=== PATIENT | male | born 1935 | race Caucasian/White ===

== ENCOUNTER 2020-10-19 14:31 | Emergency (ER) | payer OTHER, SELFPAY ==
[2020-10-19 14:32] VITALS: BP 143/74; PULSE 42; RESP 17; TEMP 36.4; O2SAT 96; BMI 22.4
--- NOTE | 2020-10-19 14:50 | EKG12_ITS ---
Test Reason : IRREGULAR HR Blood Pressure : / mmHG Vent. Rate : 059 BPM Atrial Rate : 059 BPM P-R Int : 370 ms QRS Dur : 142 ms QT Int : 464 ms P-R-T Axes : 060 -10 081 degrees QTc Int : 459 ms Sinus bradycardia 2:1 AV block with frequent Premature ventricular complexes Left bundle branch block Abnormal ECG Confirmed by GINGER VIEIRA, WILBER ([id number]), staff editor DOLLY RAMIRES ([id number]) on 10/20/2020 9:03:13 AM Referred By: Confirmed By:WILBER MILES MD
--- NOTE | 2020-10-19 14:50 | CT_ITS ---
STUDY: CT BRAIN WITHOUT CONTRAST REASON FOR EXAM: Male, 85 years old. slurred speach RADIATION DOSAGE (If Supplied By Facility): CTDIvol = ( 44.99 ) mGy, DLP = ( 779.24 ) mGycm TECHNIQUE: Transaxial CT imaging of the brain was performed without administration of intravenous contrast material. Individualized dose optimization techniques were used for this CT. COMPARISON: No relevant priors. FINDINGS: Normal soft tissue structures. Normal calvarium. There is moderate cerebral atrophy with widening of the extra-axial spaces and ventricular dilatation. Normal white matter tracts of the cerebral hemispheres. Normal basal ganglia and thalami. Normal brainstem. Normal cerebellum. There is no intracranial hemorrhage. There are no findings of an acute ischemic infarction. Normal visualized paranasal sinuses. CT/Brain/Head without Contrast IMPRESSION: Chronic involutional changes of the brain. Electronically Signed: Osvaldo Fried MD at 16:15 EDT , Service support ,
--- NOTE | 2020-10-19 14:51 | EDS_ITS ---
HPI History of Present Illness Chief Complaint: Weakness Detail of Chief Complaint: Slurred speech, low heart rate, generalized weakness Informant: patient Narrative Narrative: Patient presents to the emergency department with family members from home. Patient apparently had an episode this morning where he had slurred speech that may have lasted up to an hour. Most of the history comes from the patient's son. Patient does not recall the episode. No focal weakness was known. Son states that by the time he came home his dad was up and walking around and was doing better. Patient went to urgent care and was noted to be bradycardic and referred to the emergency department. Patient denies any chest pain or shortness of breath. He really does not see a primary care physician. Patient denies recent illness. Son states that about a month ago he had a syncopal episode in [place] but was caught by others and he did not actually fall down. Prior similar symptoms: No [facility] Medical History (Updated 10/19/20 @ 19:[address] Luis Watson MD) Cardiac murmur Diabetes Hernia High-grade atrioventricular block Hypotension Syncope Home Medications NK 10/19/20 [History Last Taken Unknown] Allergy/AdvReac Type Severity Reaction Status Date / Time No Known Allergies Allergy Verified 10/19/20 15:04 Family History (Updated 10/19/20 @ 17:37 by Isidro RODRIGUES) Father , No known paternal medical history, to include HTN, DM2, CAD or ACS No problems noted. Mother , No known paternal medical history, to include HTN, DM2, CAD or ACS No problems noted. Surgical History (Updated 10/19/20 @ 17:31 by Isidro RODRIGUES) History of appendectomy History of hernia surgery Social History (Updated 10/19/20 @ 17:40 by Isidro RODRIGUES) household members: family Smoking Status: Never smoker alcohol intake: never substance use type: does not use ROS ROS ED ROS Narrative Generalized weakness Constitutional Constitutional ED: Reports systems reviewed and no addt'l complaints, except as documented; Denies body ache(s), change in weight or chills Eyes Eyes: Denies acute decrease in peripheral vision, change in vision, double vision or loss of vision ENT ENT ED: Reports none; Denies ear pain, lip swelling, loss taste/smell, neck pain, otalgia or sore throat Cardiovascular Cardiovascular: Reports none and other Details: Bradycardia ; Denies abdominal pain, chest pain with activity, leg edema, lightheadedness, palpitations, rapid heart rate or syncope Respiratory/Chest Respiratory/Chest: Reports none; Denies change in mental status, dry cough, dyspnea, hemoptysis, shortness of breath at rest or shortness of breath with exertion Gastrointestinal Gastrointestinal: Reports none; Denies abdominal pain, change in stool character, diarrhea, hematemesis, hematochezia, melena, rectal bleeding or vomiting Genitourinary Genitourinary ED: Reports none; Denies abdominal discomfort, anuria, dysuria, genital pain or polyuria Musculoskeletal Musculoskeletal: Reports none; Denies arthralgias, back pain, difficulty walking, extremity pain, muscle weakness or myalgias Integumentary Reports none; Denies abscess or rash Neurologic Neurologic: Reports none and other Details: Slurred speech ; Denies abnormal gait, confusion, focal weakness, frequent falls, headache(s), loss of vision, numbness, paresthesias, radicular pain, vertigo or weakness Psychiatric Psychiatric: Reports systems reviewed and no addt'l complaints, except as documented and none; Denies behavioral changes, confusion, difficulty concentrating, hallucinations, suicidal ideation, tactile hallucinations or visual hallucinations Endocrine Endocrinology: Denies none, cold intolerance, excessive sweating, fatigue or heat intolerance Hematologic/Lymphatic Hematologic/Lymphatic: Reports none; Denies anemia, easy bleeding or easy bruising Allergic/Immunologic Allergic/Immunologic ED: Denies as per HPI, none, lip swelling, mouth swelling, throat swelling, tongue swelling or hives EXAM Physical Exam Const Vital Signs: 10/19/20 14:32 10/19/20 15:01 10/19/20 15:07 Temperature 97.6 F L Temperature Source Temporal Pulse Rate 42 L Pulse Rate [Lying] 44 L Pulse Rate [Sitting] 42 L Pulse Rate [Standing] 45 L Respiratory Rate 17 Respiratory Effort Normal Non-Labored Respiratory Pattern Normal Blood Pressure 143/74 H Blood Pressure [Lying] 149/63 H Blood Pressure [Sitting] 142/53 H Blood Pressure [Standing] 150/76 H Blood Pressure Mean 97 Blood Pressure Mean [Lying] 91 Blood Pressure Mean [Sitting] 82 Blood Pressure Mean [Standing] 100 Pulse Ox 96 Oxygen Delivery Method Room Air 10/19/20 17:13 10/19/20 19:45 Temperature 98 F Temperature Source Temporal Pulse Rate 75 46 L Pulse Rate [Lying] Pulse Rate [Sitting] Pulse Rate [Standing] Respiratory Rate 16 16 Respiratory Effort Respiratory Pattern Blood Pressure 143/60 H 150/67 H Blood Pressure [Lying] Blood Pressure [Sitting] Blood Pressure [Standing] Blood Pressure Mean 87 94 Blood Pressure Mean [Lying] Blood Pressure Mean [Sitting] Blood Pressure Mean [Standing] Pulse Ox 98 96 Oxygen Delivery Method Room Air Room Air Positive well nourished and well developed General Appearance ED: well developed and NAD HEENT Reports TM's clear and moist mucous membranes normocephalic and atraumatic; Negative for trauma or tenderness Tympanic Membrane ED: Yes TM's clear Eyes PERRL and EOMs intact bilaterally General Eye ED: Negative for pale conjunctiva or scleral icterus Neck no lymphadenopathy, supple and no JVD General: Negative for tenderness Chest Wall inspection of chest normal and palpation of chest normal Chest: Negative for tenderness Resp normal respiratory effort and clear to auscultation bilaterally Effort and Inspection: Negative for respiratory distress or pain with movement Auscultation: Negative for rhonchi, wheezes or diminished lung sounds Cardio regular rhythm, S1 normal heart sound, S2 normal heart sound and no murmurs Rate: bradycardia and other Other Details: Frequent ectopy Peripheral Pulses: pulses 2+ throughout GI normal to inspection, nondistended, normoactive bowel sounds, soft to palpation, non-tender, non-distended and no masses Back/Spine no CVA tenderness and no thoracic nor lumbar tenderness Extremity normal to inspection General Extremety ED: Negative for edema General Extremity: Negative for edema Neuro oriented x3, CN's II-XII intact bilaterally, no sensory deficits noted and gait normal Sensorium / Orientation: awake, alert, oriented to person, oriented to place and oriented to time Motor Exam: strength 5/5 throughout and strength abnormal Psych mental status grossly normal Skin no rashes or lesions noted and no wounds MDM MDM MDM Narrative Medical decision making narrative: Patient case discussed with hospitalist who will evaluate patient for admission. Concern patient may have had a TIA. Also patient noted to be bradycardic in the emergency department. After discussing case with hospitalist and having the EKG interpreted by cardiology. Cardiology felt patient had a second-degree 2-1 AV block that would require pacemaker placement and we were asked to transfer patient as this is not available here at [facility] at this time. Case discussed with [facility] cardiology Dr. Quiñones who accepted transfer of patient Lab Data Attestation: I reviewed the patient's lab results. Labs: Laboratory Results - last 24 hr 10/19/20 10/19/20 10/19/20 14:57 14:57 17:20 WBC Cancelled 6.2 Corrected WBC Cancelled RBC Cancelled 3.93 L Hgb Cancelled 12.1 L Hct Cancelled 35.9 L MCV Cancelled 91.3 MCH Cancelled 30.8 MCHC Cancelled 33.7 RDW Std Deviation Cancelled 47.0 H RDW Coeff of Elmo Cancelled 13.7 Plt Count Cancelled 333 MPV Cancelled 9.5 Immature Gran % (Auto) Cancelled 0.300 Neut % (Auto) Cancelled 63.1 Lymph % (Auto) Cancelled 22.9 [place] % (Auto) Cancelled 10.7 H Eos % (Auto) Cancelled 2.3 Baso % (Auto) Cancelled 0.7 Absolute Neuts (auto) Cancelled 3.9 Absolute Lymphs (auto) Cancelled 1.41 Total Counted Cancelled Neutrophils % (Manual) Cancelled Band Neutrophils % Cancelled Lymphocytes % (Manual) Cancelled Monocytes % (Manual) Cancelled Eosinophils % (Manual) Cancelled Basophils % (Manual) Cancelled Metamyelocytes % Cancelled Myelocytes % Cancelled Promyelocytes % Cancelled Blast Cells % Cancelled Plasma Cell % (Manual) Cancelled Other Cells % Cancelled Nucleated RBC % Cancelled 0 Nucleated RBCs/100 WBC Cancelled Differential Comment Cancelled Diff Path Review Cancelled Hypersegmented Neuts Cancelled Atypical Lymphocytes Cancelled Reactive Lymphocytes Cancelled Smudge Cells Cancelled Toxic Granulation Cancelled Toxic Vacuolation Cancelled Dohle Bodies Cancelled Matthew Rods Cancelled Platelet Estimate Cancelled Plt Morphology Comment Cancelled RBC Morphology Cancelled Polychromasia Cancelled Hypochromasia Cancelled Poikilocytosis Cancelled Basophilic Stippling Cancelled Anisocytosis Cancelled Microcytosis Cancelled Macrocytosis Cancelled Spherocytes Cancelled Sickle Cells Cancelled Target Cells Cancelled Tear Drop Cells Cancelled Ovalocytes Cancelled Stomatocytes Cancelled [place] Bodies Cancelled Lisa Cells Cancelled Bite Cells Cancelled Crenated Cell Cancelled Acanthocytes (Spur) Cancelled Rouleaux Cancelled Schistocytes Cancelled Sodium 130 L Potassium 4.5 Chloride 99 Carbon Dioxide 25.0 Anion Gap 6 BUN 16 Creatinine 1.13 Estim Creat Clear Calc 49.74 Est GFR (MDRD) Af Amer 80 Est GFR (MDRD) Non-Af 66 BUN/Creatinine Ratio 14.2 Glucose 117 H Calcium 9.1 Magnesium Troponin I High Sens 14 10/19/20 17:20 WBC Corrected WBC RBC Hgb Hct MCV MCH MCHC RDW Std Deviation RDW Coeff of Elmo Plt Count MPV Immature Gran % (Auto) Neut % (Auto) Lymph % (Auto) [place] % (Auto) Eos % (Auto) Baso % (Auto) Absolute Neuts (auto) Absolute Lymphs (auto) Total Counted Neutrophils % (Manual) Band Neutrophils % Lymphocytes % (Manual) Monocytes % (Manual) Eosinophils % (Manual) Basophils % (Manual) Metamyelocytes % Myelocytes % Promyelocytes % Blast Cells % Plasma Cell % (Manual) Other Cells % Nucleated RBC % Nucleated RBCs/100 WBC Differential Comment Diff Path Review Hypersegmented Neuts Atypical Lymphocytes Reactive Lymphocytes Smudge Cells Toxic Granulation Toxic Vacuolation Dohle Bodies Matthew Rods Platelet Estimate Plt Morphology Comment RBC Morphology Polychromasia Hypochromasia Poikilocytosis Basophilic Stippling Anisocytosis Microcytosis Macrocytosis Spherocytes Sickle Cells Target Cells Tear Drop Cells Ovalocytes Stomatocytes [place] Bodies Lisa Cells Bite Cells Crenated Cell Acanthocytes (Spur) Rouleaux Schistocytes Sodium Potassium Chloride Carbon Dioxide Anion Gap BUN Creatinine Estim Creat Clear Calc Est GFR (MDRD) Af Amer Est GFR (MDRD) Non-Af BUN/Creatinine Ratio Glucose Calcium Magnesium 2.3 Troponin I High Sens Radiography Chest X-Ray - ED: 1 View Diagnostic Testing: Radiology Impression Brain CT 10/19/20 14:50 IMPRESSION: Chronic involutional changes of the brain. Electronically Signed: Osvaldo Fried MD at 16:15 EDT , Service support , Chest X-Ray 10/19/20 16:13 IMPRESSION: COPD Electronically Signed: Osvaldo Fried MD at 16:28 EDT , Service support , 1 view chest x-ray obtained interpreted by myself as hyperinflation. Radiology read it is COPD otherwise no acute disease process. EKG Initial EKG: Interpretation: AV Block Comments: Sinus rhythm with a first-degree AV block and frequent PVCs as well as a left bundle branch block. Patient also noted to have a second-degree AV block that is 2-1 Prior EKG tracings: not available for review Discharge Plan Triage Chief Complaint: Weakness ED Provider: Yousif Johnson Dx/Rx/DC Orders Clinical Impression: Brain TIA, Bradycardia Prescriptions: No Action NK RF: 0 Primary Care Provider: Cristina Peters Referrals: Cristina Peters [Primary Care Provider] - Disposition Disposition: Transfer to Another Type HCF Discharge Location: [facility] Discharge Date/Time: 10/19/20 21:20
[2020-10-19 15:07] VITALS: BP 142/53; BP 149/63; BP 150/76; PULSE 42; PULSE 44; PULSE 45
[2020-10-19 15:26] LABS: Anion Gap 6 (5-15); BUN 16 mg/dL (7-18); BUN/Creat Ratio 14.2 RATIO (10-20); Calcium,Total 9.1 mg/dL (8.5-10.1); Chloride 99 mmol/L (98-107); Creatinine, Serum 1.13 mg/dL (0.70-1.30); EST Glomerular Filtration Rate 66 mL/min (>60); Est Glom Filt Rate - Afr Amer 80 mL/min (>60); Estimated Creatinine Clearance 49.74 ml/min; Glucose 117 mg/dL (74-106); Potassium 4.5 mmol/L (3.5-5.1); Sodium Level 130 mmol/L (136-145); Troponin-I HS 14 pg/mL (3.0-78.0)
[2020-10-19] MEDS: 0.9% Normal Saline 1,000 ML 150 ML IV (15:36)
--- NOTE | 2020-10-19 16:13 | RAD_ITS ---
STUDY: X-RAY CHEST REASON FOR EXAM: Male, 85 years old. weakness TECHNIQUE: Single frontal view of the chest. COMPARISON: None. FINDINGS: Lungs are hyperaerated. The lungs are clear and expanded. There is no demonstrated pleural abnormality. Normal size heart. Normal mediastinum and nakia. Normal visualized pulmonary arteries. Normal visualized aortic arch and descending thoracic aorta. Normal visualized thoracic spine. Normal visualized ribs, clavicles, and shoulders. There is no demonstrated abnormality of the visualized soft tissue structures of the upper abdomen. RAD/Chest 1 View (Portable) IMPRESSION: COPD Electronically Signed: Osvaldo Fried MD at 16:28 EDT , Service support ,
[2020-10-19 17:13] VITALS: BP 143/60; PULSE 75; RESP 16; TEMP 36.6; O2SAT 98
--- NOTE | 2020-10-19 17:15 | HP.PCM.HOS_ITS ---
Documented by User: Isidro RODRIGUES 10/19/20 17:55 HPI - General General Date of Admission: 10/19/20 Date of Service: 10/19/20 Chief Complaint: Slurred speech HPI Narrative ROBIN SHARMA is an 85-year-old male who presents to the ED at [facility] on 10/19/2020 with a chief complaint of slurred speech, bradycardia and previously observed syncope. Patient reports that today he was riding on his bu ggy to his friend's house where he was observed having an episode of slurred speech that lasted about an hour. Patient's friends contacted family who had patient evaluated at an urgent care clinic who observed the patient to have continuous episodes of bradycardia in the mid 40s. Provider at urgent care clinic recommended that patient be evaluated at an emergency room for further work-up. Patient does not have memory of either of these events and much of the history was gathered from patient's son and son-in-law who were present in the ED. Of note, patient was observed having a possible syncopal episode in [facility] about a month ago, patient did not suffer any acute trauma as he was caught by others attending the [facility] service. Patient does not complain of any headache, vision changes, upper or lower extremity weakness. Patient's past medical history is noncontributory as he does not regularly follow with a primary care doctor, patient does endorse a history of high blood sugars, but denies a formal diagnosis of diabetes or treatment thereof. Vital signs in the ED were signific ant for bradycardia at a variable rate between 40 to 75 bpm, BP is 143/60. Other vitals are stable and patient is afebrile. Chest x-ray shows no acute cardiopulmonary process, although does show hyperinflated lungs consistent with emphysema. Brain CT was obtained and only showed chronic involutional change of the brain with no evidence of acute ischemia or infarct. Patient was given fluids in the ED. [facility] Medical History (Updated 10/19/20 @ 17:31 by Isidro RODRIGUES) Diabetes Hernia Hypotension Home Medications NK 10/19/20 [History Last Taken Unknown] Allergy/AdvReac Type Severity Reaction Status Date / Time No Known Allergies Allergy Verified 10/19/20 15:04 Family History (Updated 10/19/20 @ 17:37 by Isidro RODRIGUES) Father , No known paternal medical history, to include HTN, DM2, CAD or ACS No problems noted. Mother , No known paternal medical history, to include HTN, DM2, CAD or ACS No problems noted. Surgical History (Updated 10/19/20 @ 17:31 by Isidro RODRIGUES) History of appendectomy History of hernia surgery Social History (Updated 10/19/20 @ 17:40 by Isidro RODRIGUES) household members: family Smoking Status: Never smoker alcohol intake: never substance use type: does not use ROS Constitutional Constitutional: Denies anorexia, change in weight, chills, fatigue, fever(s), malaise, night sweats, weakness or other Eyes Eyes: Denies blurry vision, change in eye color, change in vision, discharge from eye(s), double vision, erythema, eye pain, loss of vision or other ENT HEENT: Denies abnormal hearing, dysphagia, ear pain, epistaxis, headache(s), hearing loss, nasal congestion, nasal discharge, post nasal drip, sinus pressure, sore throat or other Cardiovascular Cardiovascular: Denies chest pain, claudication, dyspnea on exertion, edema, lightheadedness, orthopnea, palpitations, paroxysmal nocturnal dyspnea, rapid heart rate, syncope or other Respiratory/Chest Respiratory/Chest: Denies cough, dyspnea, excessive phlegm production, hemoptysis, productive cough, shortness of breath at rest, shortness of breath with exertion, wheezing or other Gastrointestinal Gastrointestinal: Denies abdominal pain, coffee ground emesis, constipation, diarrhea, dyspepsia, hematemesis, hematochezia, loose stools, melena, nausea, vomiting or other Genitourinary Genitourinary: Denies burning urination, difficulty urinating, dysuria, hematuria, nocturia, urinary frequency, urinary hesitancy, urinary incontinence, urinary urgency or other Musculoskeletal Musculoskeletal: Denies arthralgias, back pain, joint pain, joint stiffness, joint swelling, myalgias, neck pain or other Neurologic Neurologic: Reports abnormal speech; Denies abnormal gait, confusion, disequilibrium, dizziness, focal weakness, headache(s), numbness, paresthesias, seizure-like activity, seizures, syncope, tingling, tremor(s) or other Psychiatric Psychiatric: Denies anxiety, depression, homicidal ideation, suicidal ideation or other Endocrine Endocrinology: Denies change in body appearance, cold intolerance, excessive sweating, heat intolerance, polydipsia, polyuria or other Hematologic/Lymphatic Hematologic/Lymphatic: Denies anemia, easy bleeding, easy bruising, lymphadenopathy or other Allergic/Immunologic Allergic/Immunologic: Denies rhinitis, hives, eczemia, asthma or other Vital Signs Vital Signs Vital Signs: 10/19/20 14:32 10/19/20 15:01 10/19/20 15:07 Temperature 97.6 F L Temperature Source Temporal Pulse Rate 42 L Pulse Rate [Lying] 44 L Pulse Rate [Sitting] 42 L Pulse Rate [Standing] 45 L Respiratory Rate 17 Respiratory Effort Normal Non-Labored Respiratory Pattern Normal Blood Pressure 143/74 H Blood Pressure [Lying] 149/63 H Blood Pressure [Sitting] 142/53 H Blood Pressure [Standing] 150/76 H Blood Pressure Mean 97 Blood Pressure Mean [Lying] 91 Blood Pressure Mean [Sitting] 82 Blood Pressure Mean [Standing] 100 Pulse Ox 96 Oxygen Delivery Method Room Air Weight Weight: 156 lb 8.451 oz Body Mass Index (BMI) 22.4 Physical Exam Const alert Constitutional Narrative: Alert and orient x2, was unaware of current location. HEENT normocephalic, head/scalp atraumatic and hearing grossly normal bilaterally Eyes PERRL, EOMs intact bilaterally and conjunctivae normal Neck no lymphadenopathy, supple and no JVD Resp normal respiratory effort, no retractions, no use of accessory muscles and clear to auscultation bilaterally Cardio no murmurs and no JVD Rate: bradycardia Rhythm: abnormal rhythm GI normal to inspection, nondistended, normoactive bowel sounds, soft to palpation and non-tender Extremity normal to inspection, full ROM and no clubbing, cyanosis or edema Skin no rashes or lesions noted, no wounds, skin turgor normal and no jaundice Neuro CN's II-XII intact bilaterally Neuro Narrative: Patient did not demonstrate or complain of any focal neurological deficits. Psych affect normal Results Lab / Micro Data Result Diagrams: 10/19/20 17:20 10/19/20 14:57 Labs: Laboratory Results - last 24 hr 10/19/20 14:57: WBC Cancelled, Corrected WBC Cancelled, RBC Cancelled, Hgb Cancelled, Hct Cancelled, MCV Cancelled, MCH Cancelled, MCHC Cancelled, RDW Std Deviation Cancelled, RDW Coeff of Elmo Cancelled, Plt Count Cancelled, MPV Cancelled, Immature Gran % (Auto) Cancelled, Neut % (Auto) Cancelled, Lymph % (Auto) Cancelled, [place] % (Auto) Cancelled, Eos % (Auto) Cancelled, Baso % (Auto) Cancelled, Absolute Neuts (auto) Cancelled, Absolute Lymphs (auto) Cancelled, Total Counted Cancelled, Neutrophils % (Manual) Cancelled, Band Neutrophils % Cancelled, Lymphocytes % (Manual) Cancelled, Monocytes % (Manual) Cancelled, Eosinophils % (Manual) Cancelled, Basophils % (Manual) Cancelled, Metamyelocytes % Cancelled, Myelocytes % Cancelled, Promyelocytes % Cancelled, Blast Cells % Cancelled, Plasma Cell % (Manual) Cancelled, Other Cells % Cancelled, Nucleated RBC % Cancelled, Nucleated RBCs/100 WBC Cancelled, Differential Comment Cancelled, Diff Path Review Cancelled, Hypersegmented Neuts Cancelled, Atypical Lymphocytes Cancelled, Reactive Lymphocytes Cancelled, Smudge Cells Cancelled, Toxic Granulation Cancelled, Toxic Vacuolation Cancelled, Dohle Bodies Cancel led, Matthew Rods Cancelled, Platelet Estimate Cancelled, Plt Morphology Comment Cancelled, RBC Morphology Cancelled, Polychromasia Cancelled, Hypochromasia Cancelled, Poikilocytosis Cancelled, Basophilic Stippling Cancelled, Anisocytosis Cancelled, Microcytosis Cancelled, Macrocytosis Cancelled, Spher ocytes Cancelled, Sickle Cells Cancelled, Target Cells Cancelled, Tear Drop Cells Cancelled, Ovalocytes Cancelled, Stomatocytes Cancelled, Lou-Ambrose Bodies Cancelled, [place] Cells Cancelled, Bite Cells Cancelled, Crenated Cell Cancelled, Acanthocytes (Spur) Cancelled, Rouleaux Cancelled, Schistocytes Cancelled 10/19/20 14:57: Sodium 130 L, Potassium 4.5, Chloride 99, Carbon Dioxide 25.0, Anion Gap 6, BUN 16, Creatinine 1.13, Estim Creat Clear Calc 49.74, Est GFR (MDRD) Af Amer 80, Est GFR (MDRD) Non-Af 66, BUN/Creatinine Ratio 14.2, Glucose 117 H, Calcium 9.1, Troponin I High Sens 14 Micro: Microbiology 10/19/20 15:04 Nasal Secretion SARS-CoV-2 Antigen (Rapid) - Final Radiology Impression Brain CT 10/19/20 14:50 IMPRESSION: Chronic involutional changes of the brain. Electronically Signed: Osvaldo Fried MD at 16:15 EDT , Service support , Chest X-Ray 10/19/20 16:13 IMPRESSION: COPD Electronically Signed: Osvaldo Fried MD at 16:28 EDT , Service support , Assessment & Plan Assessment/Plan (1) Brain TIA: (2) Bradycardia: PLAN: Patient is an 85-year-old male who presents to the ED at [facility] on 10/19/2020 with a chief complaint of slurred speech, bradycardia and past history of syncope. Attempting to have patient transferred to tertiary facility for placement of permanent pacemaker. 1) slurred speech, CVA versus TIA Patient presents with a 1 day history of slurred speech. Patient does not have any significant past medical history, although endorses a history of high blood sugars. Patient is not on any aspirin, Plavix or aspirin at home. Patient does not demonstrate or complain of any focal neurological deficits on exam. Brain CT does not demonstrate any evidence of acute ischemia or infarct, and only shows chronic involutional changes of the brain. Plan; attempting to transfer secondary to #2, in the event that patient cannot be transferred immediately placed on PCU for cardiac tele monitoring, brain MRI ordered, MRA of the head and neck ordered, Echo in a.m, lipid panel ordered, PT/OT eval ordered, speech t herapy eval ordered, hemoglobin A1c ordered, CBC and BMP in a.m., Cardiac calorie controlled diet ordered, permissive hypertension allowed for rate less than 220/110, hydralazine and labetalol as needed, initiate aspirin and statin. 2) symptomatic bradycardia Patient presents with a history of observed syncope about 1 month ago. Patient with variable bradycardia with rates ranging from 40 to 75 bpm. EKG obtained and demonstrated 2-1 AV block. Patient is not on any rate limiting medications at home. Cardiology consulted: Recommends immediate transfer for placement of permanent pacemaker. Plan: ED contacted for transfer to tertiary medical facility, if no immediate transfer as above, TSH and free T4 ordered, duplex ultrasound of the carotids ordered, cardiology consult ordered, obtain orthostatic vitals. 3) diabetes, unclear type Patient self reports to having high blood sugars, however does not have any formal diagnosis of diabetes type 1 or 2. Plan; Accu-Cheks with sliding scale insulin ordered, hemoglobin A1c ordered. DVT prophylaxis -not ordered at this time. CODE STATUS: DNRCC-A, no intubation. Advance care planning: According to family, patient does have a living will, not on file. Patient seen by Isidro Triplett PA-C, under the supervision of Dr. Crews. Documented by User: Dr. Marilia Crews MD 10/19/20 18:57 HPI - General General Date of Admission: 10/19/20 [facility] Medical History (Updated 10/19/20 @ 17:31 by Isidro RODRIGUES) Diabetes Hernia Hypotension Home Medications NK 10/19/20 [History Last Taken Unknown] Allergy/AdvReac Type Severity Reaction Status Date / Time No Known Allergies Allergy Verified 10/19/20 15:04 Family History (Updated 10/19/20 @ 17:37 by Isidro RODRIGUES) Father , No known paternal medical history, to include HTN, DM2, CAD or ACS No problems noted. Mother , No known paternal medical history, to include HTN, DM2, CAD or ACS No problems noted. Surgical History (Updated 10/19/20 @ 17:31 by Isidro RODRIGUES) History of appendectomy History of hernia surgery Social History (Updated 10/19/20 @ 17:40 by Isidro RODRIGUES) household members: family Smoking Status: Never smoker alcohol intake: never substance use type: does not use Results Lab / Micro Data Result Diagrams: 10/19/20 17:20 10/19/20 14:57 Charges/Coding Multi Select Codes Visit Charges Office Visit/Consults: 88725 ED Visit; High/Threatening Severity Hospitalists' Procedures Procedures: 80681 Advncd Care Plan 30 Min
[2020-10-19 17:33] LABS: Absolute Lymphocyte Count 1.41 X10^3/uL (0.83-4.51); Absolute Neutrophil Count 3.9 X10^3/uL (2.0-7.7); Basophil# 0.04 X10^3/uL; Basophil% 0.7 % (0-1); Eosinophil# 0.14 X10^3/uL; Eosinophils% 2.3 % (0-5); Hematocrit 35.9 % (40-54); Hemoglobin 12.1 g/dL (13.0-16.5); Lymphocyte # 1.41 X10^3/ul (0.83-4.51); Lymphocyte % 22.9 % (19-41); Mean Corp Hgb Conc 33.7 g/dL (32-36); Mean Corpuscular Hgb 30.8 pg (27.0-32.0); Mean Corpuscular Volume 91.3 fL (80-94); Mean Platelet Vol. 9.5 fl (6.2-12.0); Monocyte# 0.66 X10^3/uL; Monocyte% 10.7 % (0-10); NRBC Flagged by Analyzer 0 % (0-5); Neutrophil # 3.88 X10^3/uL (2.7-7.7); Neutrophil % 63.1 % (47-70); Platelet Count 333 K/mm3 (150-450); RBC Distribution Width CV 13.7 % (11.6-14.6); Red Blood Count 3.93 M/mm3 (4.6-6.2); White Blood Count 6.2 K/mm3 (4.4-11.0)
--- NOTE | 2020-10-19 19:20 | CON.PCM.CA_ITS ---
Assessment & Plan Assessment/Plan (1) High-grade atrioventricular block: PLAN: The patient has been found to have evidence of a high-grade AV block. This may be the etiology for his concerns of fatigue, shortness of breath and dyspnea on exertion, his syncopal event, and potentially his episode of slurred speech . At the present time he appears to be hemodynamically stable at rest. He has not required any urgent or emergent intervention from a medical standpoint or a temporary transcutaneous or transvenous pacemaker standpoint. However, noting the patient is on no rate limiting medications, etc., this does raise concern of underlying primary conduction system disease that he is symptomatic from. Thus, it is recommended the patient be transferred to a tertiary care center where he can receive EP consultation for consideration for permanent pacemaker placement. (2) Cardiac murmur: PLAN: The patient does have a cardiac murmur on examination. He is unaware of this. He will need to be considered for further noninvasive valuation with a transthoracic echocardiogram to evaluate his valvular anatomy and physiology as well as his left ventricular wall motion and systolic function. (3) Syncope: QUALIFIERS: Syncope type: unspecified Qualified Code(s): R55 - Syncope and collapse PLAN: The patient had a near syncopal/syncopal event according to his family members present. This may be related to the finding of his underlying cardiac dysrhythmia conduction system disease. His brain CT scan was thought to be negative for any acute [employer] event. Thus he will continue his cardiovascular evaluation care as noted. Addt'l Comments The patient's case was discussed reviewed with the patient, his family members present, Dr. Crews, and Dr. Guaman. The patient is reported as being accepted at [facility] in [place], [place] for further cardiovascular evaluation and care. This note was generated using a voice recognition system and there may be incorrect words, spelling or punctuation that were not noted when reviewing the office note prior to saving. HPI Consult Data Date of Consult: 10/19/20 HPI Narrative HPI Narrative: ROBIN SHARMA, is a 85 year old white male who presents for cardiovascular consultation based upon concerns of an abnormal ECG demonstrating the appearance of sinus rhythm with 2-1 AV block with a left bundle branch block with occasional PVCs and associated symptoms of fatigue, shortness of breath/dyspnea with exertion, and near syncope/syncope. According to the patient and his family members present he has appears to have been more tired and fatigued recently, developing shortness of breath/dyspnea with exertion, and recently had an episode, which the patient does not recall, where he reportedly had a near syncopal/syncopal event. Also, according to his family members present, they believed he was slurring his speech . He denied any obvious chest discomfort or difficulty breathing at rest. There is been no orthopnea or PND or peripheral pitting edema. There is been no report of previous near syncope or syncope. He states he has been otherwise healthy and has not been evaluated by a physician and/or hospital in many years. Upon presentation at the emergency department he was found to have a negative cardiac enzyme level. The ECG demonstrated the appearance of sinus rhythm with 2-1 AV block with a left bundle branch block pattern with an occasional PVC. He also underwent a brain CT based upon concerns of slurred speech and the possibility of CVA. The results of the study are as noted below. [facility] Medical History (Updated 10/19/20 @ 19:[address] Luis Watson MD) Cardiac murmur Diabetes Hernia High-grade atrioventricular block Hypotension Syncope Home Medications NK 10/19/20 [History Last Taken Unknown] Allergy/AdvReac Type Severity Reaction Status Date / Time No Known Allergies Allergy Verified 10/19/20 15:04 Family History (Updated 10/19/20 @ 17:37 by Isidro RODRIGUES) Father , No known paternal medical history, to include HTN, DM2, CAD or ACS No problems noted. Mother , No known paternal medical history, to include HTN, DM2, CAD or ACS No problems noted. Surgical History (Updated 10/19/20 @ 17:31 by Isidro RODRIGUES) History of appendectomy History of hernia surgery Social History (Updated 10/19/20 @ 17:40 by Isidro RODRIGUES) household members: family Smoking Status: Never smoker alcohol intake: never substance use type: does not use ROS Constitutional Constitutional: Reports fatigue Eyes Eyes: Reports as per HPI ENT HEENT: Reports as per HPI Cardiovascular Cardiovascular: Reports dyspnea on exertion, fatigue and syncope Respiratory/Chest Respiratory/Chest: Reports dyspnea on exertion Gastrointestinal Gastrointestinal: Reports as per HPI Genitourinary Genitourinary: Reports as per HPI Musculoskeletal Musculoskeletal: Reports as per HPI Neurologic Neurologic: Reports syncope Physical Exam Const alert, oriented x3 and no apparent distress Orientation / Consciousness: awake HEENT normocephalic, head/scalp atraumatic and hearing grossly normal bilaterally Eyes PERRL, EOMs intact bilaterally and conjunctivae normal Neck full ROM, supple and no JVD Resp normal respiratory effort and clear to auscultation bilaterally Cardio regular rate, regular rhythm, S1 normal heart sound and S2 normal heart sound Cardio Narrative: ectopic beats Heart Sounds: murmur systolic III/ mid left sternal border, LVOT and sternal notch GI normal to inspection, nondistended, normoactive bowel sounds Extremity no pedal edema Skin no rashes or lesions noted Neuro oriented x3, moves all extremities, no focal motor deficits and no sensory deficits noted Psych mental status grossly normal Objective Data Vital Signs: Vital Signs Temp Pulse Resp BP Pulse Ox 98 F 75 16 143/60 H 98 10/19/20 17:13 10/19/20 17:13 10/19/20 17:13 10/19/20 17:13 10/19/20 17:13 Oxygen Delivery Method Room Air Weight: 156 lb 8.451 oz Body Mass Index (BMI) 22.4 Lab / Micro Data Result Diagrams: 10/19/20 17:20 10/19/20 14:57 Labs: Laboratory Results - last 24 hr 10/19/20 14:57: WBC Cancelled, Corrected WBC Cancelled, RBC Cancelled, Hgb Cancelled, Hct Cancelled, MCV Cancelled, MCH Cancelled, MCHC Cancelled, RDW Std Deviation Cancelled, RDW Coeff of Elmo Cancelled, Plt Count Cancelled, MPV Cancelled, Immature Gran % (Auto) Cancelled, Neut % (Auto) Cancelled, Lymph % (Auto) Cancelled, [place] % (Auto) Cancelled, Eos % (Auto) Cancelled, Baso % (Auto) Cancelled, Absolute Neuts (auto) Cancelled, Absolute Lymphs (auto) Cancelled, Total Counted Cancelled, Neutrophils % (Manual) Cancelled, Band Neutrophils % Cancelled, Lymphocytes % (Manual) Cancelled, Monocytes % (Manual) Cancelled, Eosinophils % (Manual) Cancelled, Basophils % (Manual) Cancelled, Metamyelocytes % Cancelled, Myelocytes % Cancelled, Promyelocytes % Cancelled, Blast Cells % Cancelled, Plasma Cell % (Manual) Cancelled, Other Cells % Cancelled, Nucleated RBC % Cancelled, Nucleated RBCs/100 WBC Cancelled, Differential Comment Cancelled, Diff Path Review Cancelled, Hypersegmented Neuts Cancelled, Atypical Lymphocytes Cancelled, Reactive Lymphocytes Cancelled, Smudge Cells Cancelled, Toxic Granulation Cancelled, Toxic Vacuolation Cancelled, Dohle Bodies Cancelled, Matthew Rods Cancelled, Platelet Estimate Cancelled, Plt Morphology Comment Cancelled, RBC Morphology Cancelled, Polychromasia Cancelled, Hypochromasia Cancelled, Poikilocytosis Cancelled, Basophilic Stippling Cancelled, Anisocytosis Cancelled, Microcytosis Cancelled, Macrocytosis Cancelled, Spherocytes Cancelled, Sickle Cells Cancelled, Target Cells Cancelled, Tear Drop Cells Cancelled, Ovalocytes Cancelled, Stomatocytes Cancelled, Lou-Vina Bodies Cancelled, [place] Cells Cancelled, Bite Cells Ca ncelled, Crenated Cell Cancelled, Acanthocytes (Spur) Cancelled, Rouleaux Cancelled, Schistocytes Cancelled 10/19/20 14:57: Sodium 130 L, Potassium 4.5, Chloride 99, Carbon Dioxide 25.0, Anion Gap 6, BUN 16, Creatinine 1.13, Estim Creat Clear Calc 49.74, Est GFR (MDRD) Af Amer 80, Est GFR (MDRD) Non-Af 66, BUN/Creatinine Ratio 14.2, Glucose 117 H, Calcium 9.1, Troponin I High Sens 14 10/19/20 17:20: WBC 6.2, RBC 3.93 L, Hgb 12.1 L, Hct 35.9 L, MCV 91.3, MCH 30.8, MCHC 33.7, RDW Std Deviation 47.0 H, RDW Coeff of Elmo 13.7, Plt Count 333, MPV 9.5, Immature Gran % (Auto) 0.300, Neut % (Auto) 63.1, Lymph % (Auto) 22.9, [place] % (Auto) 10.7 H, Eos % (Auto) 2.3, Baso % (Auto) 0.7, Absolute Neuts (auto) 3.9, Absolute Lymphs (auto) 1.41, Nucleated RBC % 0 Micro: Microbiology 10/19/20 15:04 Nasal Secretion SARS-CoV-2 Antigen (Rapid) - Final Cardiology Labs/Tests 10/19/20 14:57: WBC Cancelled, Corrected WBC Cancelled, RBC Cancelled, Hgb Cancelled, Hct Cancelled, MCV Cancelled, MCH Cancelled, MCHC Cancelled, Plt Count Cancelled, MPV Cancelled, Immature Gran % (Auto) Cancelled, Neut % (Auto) Cancelled, Lymph % (Auto) Cancelled, [place] % (Auto) Cancelled, Eos % (Auto) Cancelled, Baso % (Auto) Cancelled, Absolute Neuts (auto) Cancelled, Total Counted Cancelled, Neutrophils % (Manual) Cancelled, Band Neutrophils % Cancelled, Lymphocytes % (Manual) Cancelled, Monocytes % (Manual) Cancelled, Eosinophils % (Manual) Cancelled, Basophils % (Manual) Cancelled, Metamyelocytes % Cancelled, Myelocytes % Cancelled, Promyelocytes % Cancelled, Blast Cells % Cancelled, Plasma Cell % (Manual) Cancelled, Other Cells % Cancelled, Nucleated RBC % Cancelled 10/19/20 14:57: Sodium 130 L, Potassium 4.5, Chloride 99, Carbon Dioxide 25.0, Anion Gap 6, BUN 16, Creatinine 1.13, Est GFR (MDRD) Af Amer 80, Est GFR (MDRD) Non-Af 66, BUN/Creatinine Ratio 14.2, Glucose 117 H, Calcium 9.1 10/19/20 17:20: WBC 6.2, RBC 3.93 L, Hgb 12.1 L, Hct 35.9 L, MCV 91.3, MCH 30.8, MCHC 33.7, Plt Count 333, MPV 9.5, Immature Gran % (Auto) 0.300, Neut % (Auto) 63.1, Lymph % (Auto) 22.9, [place] % (Auto) 10.7 H, Eos % (Auto) 2.3, Baso % (Auto) 0.7, Absolute Neuts (auto) 3.9, Nucleated RBC % 0 Rhythm: As noted above EKG: As noted above Radiography Diagnostic Testing: Radiology Impression Brain CT 10/19/20 14:50 IMPRESSION: Chronic involutional changes of the brain. Electronically Signed: Osvaldo Fried MD at 16:15 EDT , Service support , Chest X-Ray 10/19/20 16:13 IMPRESSION: COPD Electronically Signed: Osvaldo Fried MD at 16:28 EDT , Service support ,
--- NOTE | 2020-10-19 19:37 | NURSING ---
[facility] ROOM 321 NURSE TO NURSE [phone]
[2020-10-19 19:45] VITALS: BP 150/67; PULSE 46; RESP 16; O2SAT 96
--- NOTE | 2020-10-19 19:50 | NURSING ---
ETA 30 TO 45 MIN
[2020-10-19 21:17] LABS: Magnesium 2.3 mg/dL (1.6-2.6)
== END 2020-10-19 21:20 | disposition other institution (70) ==
PROVIDERS: Family Medicine; Emergency Provider Emergency Medicine
DX: R47.81 Slurred speech (principal); I44.1 Atrioventricular block, second degree; J44.9 Chronic obstructive pulmonary disease, unspecified; R73.9 Hyperglycemia, unspecified; Z66 Do not resuscitate
CPT/HCPCS: 70450; 71045; 80048; 83735; 84484; 85025; 87426; 93005; 96360; 96361; 99285; J7030; A4216

== ENCOUNTER → 2021-02-01 14:00 | Outpatient (CLI) | payer OTHER, SELFPAY ==
[2021-02-01 15:11] LABS: Anion Gap 7 (5-15); BUN 9 mg/dL (7-18); BUN/Creat Ratio 11.2 RATIO (10-20); Calcium,Total 8.6 mg/dL (8.5-10.1); Chloride 100 mmol/L (98-107); EST Glomerular Filtration Rate 98 mL/min (>60); Est Glom Filt Rate - Afr Amer 118 mL/min (>60); Glucose 112 mg/dL (74-106); Potassium 4.3 mmol/L (3.5-5.1); Sodium Level 136 mmol/L (136-145)
== END ==
DX: E87.1 Hypo-osmolality and hyponatremia (principal); I10 Essential (primary) hypertension
CPT/HCPCS: 80048